=== PATIENT | male | born 1985 | race Asian ===

== ENCOUNTER → 2024-02-07 | Outpatient (CLI) | payer OTHER | END | disposition home or self-care (01) | LOC: MSR 08:25 | PROVIDERS: ATTEND Chiropractor | DX: S92.912A Unspecified fracture of left toe(s), initial encounter for closed fracture (principal); S92.911A Unspecified fracture of right toe(s), initial encounter for closed fracture; M20.12 Hallux valgus (acquired), left foot; R07.9 Chest pain, unspecified; X58.XXXA Exposure to other specified factors, initial encounter; Y93.89 Activity, other specified; Y92.89 Other specified places as the place of occurrence of the external cause; Y99.8 Other external cause status | CPT/HCPCS: 71046; 87207; 36415-L1; 36415-TC ==